=== PATIENT | female | born 1970 | race Caucasian/White ===

== ENCOUNTER 2017-07-07 14:06 | Emergency (ER) | payer OTHER ==
[~2017-07-07] VITALS: Ht 167.6 cm; Wt 88.9 kg
[2017-07-07 14:17] VITALS: BP 158/78; PULSE 100; RESP 18; TEMP 97.9; O2SAT 96
--- NOTE | 2017-07-07 14:37 | PD ---
HPI Chief Complaint: Edema Time Seen by Provider: 14:37 Travel History International Travel<30 days: No Contact w/Intl Traveler<30days: No Traveled to known affect area: No History of Present Illness HPI 47-year-old female came to the emergency room with history of right leg pain and numbness from knee below for past couple days. Patient has history of diabetes that is poor controlled as per her own admission. She is on 1000 mg of metformin twice a day and says that her sugar usually runs more than 200. She has not had a recent hemoglobin A1c done. She went to see her primary care today and also mentioned that she has noticed some swelling of her right foot more than the left and he sent her to the emergency room to get an ultrasound to rule out DVT. Patient is a smoker. No prior history of DVT or PE. She is not on any blood thinners. She takes gabapentin for peripheral neuropathy. She says the bottom of her foot feels numb and like a ball kind of sensation. Vital signs are stable. PFSH Past Medical History Narrative Medical List of her past medical, surgical, social and family history is reviewed from the nursing note. ?: Not LMP: TWO MONTHS AGO Allergies-Medications (Allergen,Severity, Reaction): Coded Allergies: aspirin (Verified Allergy, Severe, Anaphylaxis, 07/07/17) Comments List of her allergies reviewed from the nursing note. Reported Meds & Prescriptions Reported Meds & Active Scripts Active Reported Melatonin 10 Mg-1 Mg Tab 10 Mg PO HS PRN Hydroxyzine HCl 25 Mg Tab 25 Mg PO BID Lisinopril 10 Mg Tab 10 Mg PO DAILY Gabapentin 100 Mg Cap 100 Mg PO TID Metformin (Metformin HCl) 500 Mg Tab 500 Mg PO BIDPC Narrative Medication List of her home medications reviewed from the nursing note Review of Systems Except as stated in HPI: all other systems reviewed are Neg Musculoskeletal: Positive: Pain Neurologic: Positive: Paresthesia Physical Exam Narrative GENERAL: Awake, alert, no obvious distress SKIN: Focused skin assessment warm/dry. HEAD: Atraumatic. Normocephalic. EYES: Pupils equal and round. No scleral icterus. No injection or drainage. ENT: No nasal bleeding or discharge. Mucous membranes pink and moist. NECK: Trachea midline. No JVD. CARDIOVASCULAR: Regular rate and rhythm. No murmur appreciated. RESPIRATORY: No accessory muscle use. Clear to auscultation. Breath sounds equal bilaterally. GASTROINTESTINAL: Abdomen soft, non-tender, nondistended. Hepatic and splenic margins not palpable. MUSCULOSKELETAL: No obvious deformities. No clubbing. No cyanosis. No edema. NEUROLOGICAL: Awake and alert. No obvious cranial nerve deficits. Motor grossly within normal limits. Normal speech. PSYCHIATRIC: Appropriate mood and affect; insight and judgment normal. Data Data Last Documented VS Vital Signs Date Time Temp Pulse Resp B/P (MAP) Pulse Ox O2 Delivery O2 Flow Rate FiO2 07/07/17 14:17 97.9 100 18 158/78 (104) 96 Orders Orders Us Leg Venous Doppler (07/07/17 ) Ed Discharge Order (07/07/17 15:52) [facility] Medical Decision Making Medical Screen Exam Complete: Yes Emergency Medical Condition: Yes Medical Record Reviewed: Yes Differential Diagnosis DVT, peripheral neuropathy Narrative Course 4:04 PM ultrasound is negative for DVT. I have recommended that patient should go back following up with her primary care getting tighter control of her blood sugar. I recommended that she should be started on insulin as well if hemoglobin A1c is high. Diagnosis Primary Impression: Peripheral neuropathy Qualified Codes: G63 - Polyneuropathy in diseases classified elsewhere Referrals: Primary Care Physician Additional Instructions: Please follow-up with her primary care. You should be put on a better regimen for tighter sugar control. Ask your physician to consider starting on insulin if your hemoglobin A1c is high. Med/Other Pt SpecificInfo: No Change to Meds Disposition: 01 DISCHARGE HOME Condition: Stable Philip Berman MD July 07, 2017 14:37
[2017-07-07] MEDS ORDERED: HYDR-3133 PO (15:00)
[2017-07-07] MEDS ORDERED: GABA100C4 PO (15:00)
[2017-07-07] MEDS ORDERED: MELA1TAB18 PO (15:00)
[2017-07-07] MEDS ORDERED: METF500T PO (15:00)
[2017-07-07] MEDS ORDERED: LISI10TA3 PO (15:00)
--- NOTE | 2017-07-07 15:46 | RADRPT ---
EXAM DATE/TIME: 07/07/2017 15:23 [facility] COMPARISON: No previous studies available for comparison. INDICATIONS : Right leg pain. MEDICAL HISTORY : None. Diabetic. HTN. Diabetic neuropathy. Ovairan cysts. SURGICAL HISTORY : Cholecystectomy. Cyst removal. ENCOUNTER: Initial ACUITY: 3 weeks PAIN SCORE: 9/10 LOCATION: Right leg. TECHNIQUE: Venous ultrasound of the leg was performed from the inguinal ligament to the proximal calf. Real-suellen e, color Doppler and spectral tracing, compression and augmentation techniques were used. FINDINGS: There is normal compressibility of the deep venous system from the inguinal region to the proximal ca lf. No echogenic clot is seen in the lumen of the common femoral, femoral, popliteal, and posterior tibial veins. There is a normal response of the venous system to proximal and distal augmentation an d respiration. CONCLUSION: Negative for deep venous thrombosis. Sammy Meng MD FACR on July 07, 2017 at 15:43 Board Certified Radiologist. This report was verified electronically.
== END 2017-07-07 16:14 | disposition home or self-care (01) ==
LOC: PHED 14:06
DX: E11.40 Type 2 diabetes mellitus with diabetic neuropathy, unspecified (principal); I10 Essential (primary) hypertension; F17.200 Nicotine dependence, unspecified, uncomplicated
CPT/HCPCS: 93971